=== PATIENT | male | born 1965 | race Caucasian/White ===

== ENCOUNTER 2018-07-07 11:28 | Outpatient (CLI) | payer OTHER | END 2018-07-07 19:58 | disposition home or self-care (01) | LOC: MLB 11:28 | PROVIDERS: ATTEND Preventive Medicine Preventive Medicine/Occupational Environmental Medicine | DX: N39.0 Urinary tract infection, site not specified (principal) | CPT/HCPCS: 87086 ==

== ENCOUNTER 2018-07-10 13:30 | Outpatient (CLI) | payer OTHER | END 2018-07-10 16:07 | disposition home or self-care (01) | LOC: MRD 13:30 | DX: M06.00 Rheumatoid arthritis without rheumatoid factor, unspecified site (principal); R20.0 Anesthesia of skin; M79.7 Fibromyalgia; M25.551 Pain in right hip; M25.552 Pain in left hip; M25.561 Pain in right knee; M25.562 Pain in left knee | CPT/HCPCS: 73562 ==

== ENCOUNTER 2018-09-08 09:15 | Outpatient (CLI) | payer OTHER ==
[2018-09-08 10:09] LABS: BASOPHILS % (AUTO) 0.9 % (0.0-2.0); EOSINOPHILS # (AUTO) 0.1 K/uL (0-0.4); EOSINOPHILS % (AUTO) 1.9 % (0.0-4.0); LYMPHOCYTES # (AUTO) 1.4 K/uL (2.0-11.5); LYMPHOCYTES % (AUTO) 33.1 % (20.5-51.1); MEAN CORPUSCULAR HEMOGLOBIN 31 pg (27-31); MEAN CORPUSCULAR HGB CONC 33 g/dL (33-37); MEAN CORPUSCULAR VOLUME 93.5 fL (80-94); MONOCYTES # (AUTO) 0.3 K/uL (0.8-1.0); MONOCYTES % (AUTO) 6.8 % (1.7-9.3); NEUTROPHILS # (AUTO) 2.4 K/uL (1.8-7.7); NEUTROPHILS % (AUTO) 57.3 % (42.2-75.2); PLATELET COUNT (AUTO) 240 K/uL (140-450); RED BLOOD CELL COUNT(AUTO) 5.24 MIL/uL (4.20-6.10); RED CELL DISTRIBUTION WIDTH 16.6 % (11.6-13.7); WHITE BLOOD COUNT (AUTO) 4.3 K/uL (4.8-10.8)
[2018-09-08 11:28] LABS: ALBUMIN 3.9 g/dL (3.4-5.0); ANION GAP 15.3 (8-16); CARBON DIOXIDE 25.7 mmol/L (21-32); CHOL/HDL RATIO 3.5 (1-4.5); CREATININE 0.9 mg/dL (0.7-1.3); THYROID STIMULATING HORMONE 1.14 uIU/mL (0.34-3.74); TOTAL BILIRUBIN 0.8 mg/dL (0.0-1.0)
[2018-09-11 10:14] LABS: FERRITIN 19 ng/mL (30 - 400); FOLIC ACID > 20.00 ng/mL (>3.0)
[2018-09-11 10:16] LABS: ANTI-NUCLEAR ANTIBODY,DIRECT Negative (Negative)
== END 2018-09-08 20:01 | disposition home or self-care (01) ==
LOC: MLB 09:15
PROVIDERS: ATTEND Internal Medicine Geriatric Medicine
DX: M06.09 Rheumatoid arthritis without rheumatoid factor, multiple sites (principal); D51.0 Vitamin B12 deficiency anemia due to intrinsic factor deficiency; N52.9 Male erectile dysfunction, unspecified; M79.10 Myalgia, unspecified site; Z79.899 Other long term (current) drug therapy
CPT/HCPCS: 36415; 80053; 82306; 82550; 82607; 82728; 82746; 83540; 84154; 84403; 84443; 85025; 85651; 86038; 86140; 86430

== ENCOUNTER 2018-12-10 14:54 | Outpatient (CLI) | payer OTHER ==
[2018-12-10 15:39] LABS: BASOPHILS % (AUTO) 0.7 % (0.0-2.0); EOSINOPHILS # (AUTO) 0.1 K/uL (0-0.4); EOSINOPHILS % (AUTO) 1.3 % (0.0-4.0); HEMATOCRIT 47.3 % (36-52); HEMOGLOBIN 15.5 g/dL (12.0-18.0); LYMPHOCYTES # (AUTO) 2.3 K/uL (2.0-11.5); LYMPHOCYTES % (AUTO) 40.9 % (20.5-51.1); MEAN CORPUSCULAR HEMOGLOBIN 31 pg (27-31); MEAN CORPUSCULAR HGB CONC 33 g/dL (33-37); MEAN CORPUSCULAR VOLUME 92.7 fL (80-94); MONOCYTES # (AUTO) 0.5 K/uL (0.8-1.0); MONOCYTES % (AUTO) 8.7 % (1.7-9.3); NEUTROPHILS # (AUTO) 2.7 K/uL (1.8-7.7); NEUTROPHILS % (AUTO) 48.4 % (42.2-75.2); PLATELET COUNT (AUTO) 210 K/uL (140-450); RED CELL DISTRIBUTION WIDTH 19.3 % (11.6-13.7); WHITE BLOOD COUNT (AUTO) 5.6 K/uL (4.8-10.8)
[2018-12-11 09:09] LABS: IMMUNOGLOBULIN A 100 mg/dL (90-386); IMMUNOGLOBULIN G 732 mg/dL (700-1600); IMMUNOGLOBULIN M 79 mg/dL (20-172)
== END 2018-12-10 19:50 | disposition home or self-care (01) ==
LOC: MLB 14:54
DX: D80.1 Nonfamilial hypogammaglobulinemia (principal)
CPT/HCPCS: 36415; 85025